=== PATIENT | female | born 1955 | race Caucasian/White ===

== ENCOUNTER 2021-01-04 21:08 | Emergency (ER) | payer OTHER ==
[2021-01-05 00:31] LABS: Hemoglobin 12.8 g/dL (12.0-15.5); Mean Corpuscular HGB CONC 33.1 g/dL (32.0-36.0); Mean Corpuscular Hemoglobin 30.3 pg (27.0-33.0); Mean Corpuscular Volume 91.7 fl (81.6-98.3); Platelet Count 367 10x3/uL (150-450); RBC Distribution Width 12.2 % (11.5-14.5); Red Blood Cell (RBC) Count 4.22 10x6/uL (3.90-5.03); White Blood Cell (WBC) Count 22.3 10x3/uL (3.5-10.5)
[2021-01-05 00:38] LABS: ALT (SGPT) 12 U/L (8-55); AST (SGOT) 17 U/L (5-34); Alkaline Phosphatase 120 U/L (40-110); Anion Gap 17 mmol/L (10-20); BUN (Urea Nitrogen) 11 mg/dL (9.8-20.1); Bilirubin, Total 0.5 mg/dL (0.2-1.2); Calc. Creatinine Clearance 0 mL/min (70-130); Carbon Dioxide 18 mmol/L (23-31); Chloride 106 mmol/L (98-107); Globulin 2.2 g/dL (2.4-3.5); Glucose 112 mg/dL (80-115); Lipase 11 U/L (8-78); Potassium 3.5 mmol/L (3.5-5.1); Protein, Total 6.2 g/dL (5.8-8.1); Sodium 137 mmol/L (136-145)
[2021-01-05 01:46] LABS: Band 9 % (5-11); Eosinophils 1 % (0-10); Lymphocytes 9 % (21-51); Monocytes 10 % (0-10); Reactive Lymphocytes 4 % (0-10)
[2021-01-05 01:47] LABS: Neutrophil 67 % (42-75)
[2021-01-05 01:49] LABS: Platelet Morphology Comment Appears Adequate
[2021-01-05 01:50] LABS: MDiff Complete? YES; RBC Morphology Normal
== END 2021-01-05 03:01 | disposition home or self-care (01) ==
LOC: CSHERS 21:08
DX: R19.7 Diarrhea, unspecified (principal); E78.5 Hyperlipidemia, unspecified; I48.91 Unspecified atrial fibrillation; I10 Essential (primary) hypertension; Z79.899 Other long term (current) drug therapy
CPT/HCPCS: 80053; 82274; 83605; 83630; 83690; 85025; 87045; 87046; 87324; 87427; 87449; 93005

== ENCOUNTER 2023-02-09 12:15 | Emergency (ER) | payer OTHER ==
[2023-02-09] MEDS ORDERED: Lidocaine/Transparent Dressing 1 EACH KIT ONE (13:03)
[2023-02-09] MEDS ORDERED: Boostrix 0.5 ML (Tdap) VIAL (>/=7 yrs of age) ONE (13:03)
[2023-02-09] MEDS ORDERED: Lidocaine 1% w/Epinephrine 1:200K 30 ML VIAL ONE (13:03)
[2023-02-09] MEDS ORDERED: Bacitracin 1 PK ONE (15:38)
== END 2023-02-09 15:30 | disposition home or self-care (01) ==
LOC: CSHERS 12:15
DX: S81.811A Laceration without foreign body, right lower leg, initial encounter (principal); I10 Essential (primary) hypertension; Z23 Encounter for immunization; W26.8XXA Contact with other sharp object(s), not elsewhere classified, initial encounter
CPT/HCPCS: 12002; 90471; 90715

== ENCOUNTER 2023-03-23 08:14 | Day surgery (SDC) | payer OTHER ==
[2023-03-22 10:58] VITALS: BMI 30.2
[2023-03-23] MEDS ORDERED: PROPOFOL 20 ML ONE ×5 (11:41→13:06)
== END 2023-03-23 14:25 | disposition home or self-care (01) ==
LOC: CSHSDC 08:14
PROVIDERS: ATTEND Internal Medicine Gastroenterology
PROC: 0D9L8ZZ Drainage of Transverse Colon, Via Natural or Artificial Opening Endoscopic (ICD-10-PCS; principal; 2023-03-23)
DX: D12.3 Benign neoplasm of transverse colon (principal); K57.30 Diverticulosis of large intestine without perforation or abscess without bleeding; R19.5 Other fecal abnormalities; I10 Essential (primary) hypertension; I48.91 Unspecified atrial fibrillation; Z88.6 Allergy status to analgesic agent
CPT/HCPCS: 88305; J2704